=== PATIENT | female | born 1980 | race African-American/Black ===

== ENCOUNTER 2017-12-09 19:22 | Emergency (ER) | payer OTHER ==
[~2017-12-09] VITALS: Ht 167.6 cm; Wt 63.6 kg
[~2017-12-09 19:22] MED LIST: NOCURR
[2017-12-09] MEDS ORDERED: KETOROLAC TROMETHAMINE 30 MG/ML VIAL IM ONE (20:00)
[2017-12-09 20:25] VITALS: BP 102/61
[2017-12-09] MEDS ORDERED: MUPIROCIN CALCIUM 2% 22 GM OINTMENT TP ONE (20:30)
== END 2017-12-09 21:09 | disposition home or self-care (01) ==
LOC: EMS 19:23
DX: L08.9 Local infection of the skin and subcutaneous tissue, unspecified (principal); J45.909 Unspecified asthma, uncomplicated; F12.90 Cannabis use, unspecified, uncomplicated; F17.210 Nicotine dependence, cigarettes, uncomplicated
CPT/HCPCS: 96372; 99283; 99406; J1885